=== PATIENT | male | born 1970 | race African-American/Black ===

== ENCOUNTER 2018-04-14 22:18 | Emergency (ER) | payer MEDICAID ==
[~2018-04-14] VITALS: Ht 180.3 cm; Wt 82.1 kg
[2018-04-14 22:23] VITALS: BP 138/70
--- NOTE | 2018-04-14 22:32 | NUR ---
PT AMBULATED TO ER BED 12.
--- NOTE | 2018-04-14 22:35 | NUR ---
PATIENT PRESENTS TO ED WITH pt came in with c/o cough x 20 days. pt is a/o x 4. NKA an no previous medical HX. . DENIES N/V/D; SKIN IS PINK/WARM/DRY; AOX4 WITH EVEN AND STEADY GAIT; LUNGS clear in right lobe and but heard some wheezes on left lobe upon assessment; HR EVEN AND REGULAR; PT DENIES ANY FEVER, CP, SOB, AT THIS TIME; PATIENT STATES PAIN OF 0/10 AT THIS TIME; VSS; PATIENT POSITIONED FOR COMFORT; HOB ELEVATED; BEDRAILS UP X2; BED DOWN. ER MD MADE AWARE OF PT STATUS.
[2018-04-14 22:55] VITALS: BP 138/70
--- NOTE | 2018-04-14 22:55 | NUR ---
Patient discharged with v/s stable. Written and verbal after care instructions given and explained. Patient alert, oriented and verbalized understanding of instructions. Ambulatory with steady gait. All questions addressed prior to discharge. ID band removed. Patient advised to follow up with PMD. Rx of promethazine and azithromycin given. Patient educated on indication of medication including possible reaction and side effects. Opportunity to ask questions provided and answered.
== END 2018-04-14 22:55 | disposition home or self-care (01) ==
LOC: MED 22:18
DX: J40 Bronchitis, not specified as acute or chronic (principal)
CPT/HCPCS: 99283